=== PATIENT | male | born 1990 | race Caucasian/White ===

== ENCOUNTER 2019-03-05 09:15 | Day surgery (SDC) | payer OTHER ==
[~2019-03-05 09:15] MED LIST: [UNRECOGNIZED DRUG - OTHER] PO
[2019-03-05] MEDS ORDERED: PERCOCET 5-3251 EACH PO (13:41)
[2019-03-05] MEDS ORDERED: COLACE100 MG PO (13:41)
== END 2019-03-05 19:00 | disposition home or self-care (01) ==
LOC: CIR.AMB 09:15 → AMB-ENDOS 12:15 → CIR.AMB 12:15
DX: A63.0 Anogenital (venereal) warts (principal); K64.4 Residual hemorrhoidal skin tags